=== PATIENT | female | born 1940 | race Caucasian/White ===

== ENCOUNTER 2020-09-14 09:39 | Inpatient (IN) | payer MEDICARE ==
[~2020-09-14] VITALS: Ht 190.5 cm; Wt 77.1 kg
--- NOTE | 2020-09-14 09:55 | NUR ---
PT DOES NOT REMEMBER HER HOME MEDICATION.
--- NOTE | 2020-09-14 10:00 | NUR ---
Pt BIB [facility], reports pt is covid +, pt had low SPO2 in 80's at home and has diarrhea; Pt laced on O2 via NC. Pt c/o diarrhea for 5 days, severe today, anorexia x 2 days, cough and low SPO2. Pt denies CP, SOB, dizziness, n/v, no other complaints, no distress noted.
[2020-09-14] MEDS ORDERED: ALBUTEROL SULFATE 8 GM HFA.AER.AD IH STA (10:11)
[2020-09-14] MEDS ORDERED: CEFTRIAXONE 1 G in IV DEXTROSE 5% 50 ML IV ONE (10:15)
[2020-09-14] MEDS ORDERED: AZITHROMYCIN IV 500 MG in IV DEXTROSE 5% 250 ML IV ONE (10:15)
[2020-09-14] MEDS ORDERED: DEXAMETHASONE SOD PHOSPHATE 4 MG INJ IV ONE (10:15)
[2020-09-14 10:46] LABS: BASOPHILS # (AUTO) 0.2 K/uL (0.0-8.0); BASOPHILS % (AUTO) 3.9 % (0.0-2.0); EOSINOPHILS % (AUTO) 0.3 % (0.0-7.0); HEMATOCRIT 39.6 % (31.2-41.9); HEMOGLOBIN 13.2 g/dL (10.9-14.3); LYMPHOCYTES # (AUTO) 0.4 K/uL (20.0-40.0); LYMPHOCYTES % (AUTO) 6.8 % (20.5-51.5); MEAN CORPUSCULAR HEMOGLOBIN 31.1 uug (24.7-32.8); MEAN CORPUSCULAR HGB CONC 33 g/dL (32.3-35.6); MEAN CORPUSCULAR VOLUME 93.6 fL (75.5-95.3); MONOCYTES # (AUTO) 0.5 K/uL (2.0-10.0); MONOCYTES % (AUTO) 9.7 % (0.0-11.0); NEUTROPHILS # (AUTO) 4.4 K/uL (1.8-8.9); NEUTROPHILS % (AUTO) 79.3 % (38.5-71.5); PLATELET COUNT (AUTO) 216 K/uL (179-408); RED BLOOD CELL COUNT(AUTO) 4.23 MIL/uL (3.63-4.92); WHITE BLOOD COUNT (AUTO) 5.6 K/uL (3.8-11.8)
[2020-09-14 11:11] LABS: THYROID STIMULATING HORMONE 0.573 mIU/mL (0.358-3.740)
[2020-09-14] MEDS ORDERED: AZITHROMYCIN 500MG/ D5W 250ML IVPB **ER PYXIS ONLY IV ONE (11:19)
[2020-09-14] MEDS ORDERED: DEXAMETHASONE SOD PHOSPHATE 4 MG INJ ONE (11:19)
[2020-09-14] MEDS ORDERED: CEFTRIAXONE /D5W 50ML IVPB **ER PYXIS IV ONE (11:20)
[2020-09-14 11:37] LABS: POTASSIUM 3.7 mmol/L (3.5-5.1)
[2020-09-14 11:43] LABS: BILIRUBIN,DIRECT 0.2 mg/dL (0.0-0.2); BILIRUBIN,TOTAL 0.8 mg/dL (0.2-1.0); MAGNESIUM 2.2 mg/dL (1.8-2.4); TOTAL PROTEIN, SERUM 7.1 g/dL (6.4-8.2)
[2020-09-14] MEDS ORDERED: ENOXAPARIN SODIUM 80 MG/0.8 ML DISP.SYRIN SQ ONE ×2 (12:00→13:13)
[2020-09-14] MEDS ORDERED: IV NORMAL SALINE 1000 ML BAG IV ONE (13:00)
--- NOTE | 2020-09-14 14:02 | NUR ---
Pt given lunch tray. No complaints, no distress noted.
[2020-09-14] MEDS ORDERED: ACETAMINOPHEN 650 MG SUPP.RECT RC PRN (15:30)
[2020-09-14] MEDS ORDERED: ALBUTEROL SULFATE 8 GM HFA.AER.AD IH PRN (15:30)
[2020-09-14] MEDS ORDERED: ONDANSETRON 4 MG/2 ML VIAL IV PRN (15:30)
[2020-09-14] MEDS ORDERED: ACETAMINOPHEN 325 MG TABLET PO PRN (15:30)
--- NOTE | 2020-09-14 17:00 | NUR ---
Pt resting in bed, no further complaints, no distress noted. Gave pt cracker and water.
--- NOTE | 2020-09-14 20:00 | NUR ---
ADMITTED,FEMALE ALERT X3, ORIENTED TO FLOOR , COVID ISOLATION O2 AT 2 LITERS. NO SOB SLEPT AT LONG INTERVALS NO COUGH NOTED.
[2020-09-14] MEDS ORDERED: ENOXAPARIN SODIUM 100 MG/ML DISP.SYRIN SQ ONE (22:57)
[2020-09-14] MEDS: ENOXAPARIN SODIUM 80 MG/0.8 ML DISP.SYRIN SQ SCH (23:02)
--- NOTE | 2020-09-14 23:50 | NUR ---
Patient is resting in bed, states that she has been coughing more, currently she is reading 94% SpO2 on the monitor, heart rate is normal, and BP is within normal limits.
--- NOTE | 2020-09-15 04:30 | NUR ---
Patient is resting in bed, requested and given a warm blanket, no distress noted at this time.
[2020-09-15] MEDS ORDERED: ONDANSETRON 4 MG/2 ML VIAL ONE (06:34)
--- NOTE | 2020-09-15 07:24 | NUR ---
(Pandemic disaster charting with no appropriate staffing ratio observed in ER) : Puppet Engineer assumes care, patient is seen lying on gurney with high ingram's position while using her personal cellphone, respiration: nonlabored, denies nausea@this time, afebrile, calm, pending available COVID telemetry bed & nurse@the moment
[2020-09-15] MEDS ORDERED: DEXAMETHASONE SOD PHOSPHATE 10 MG INJ ONE (08:31)
[2020-09-15] MEDS ORDERED: ENOXAPARIN SODIUM 80 MG/0.8 ML DISP.SYRIN SQ ONE (08:31)
[2020-09-15] MEDS: DEXAMETHASONE SOD PHOSPHATE 4 MG INJ IV SCH (09:06)
[2020-09-15] MEDS: ENOXAPARIN SODIUM 80 MG/0.8 ML DISP.SYRIN SQ SCH ×2 (09:07→21:07)
[2020-09-15 10:26] LABS: BASOPHILS % (AUTO) 0.1 % (0.0-2.0); HEMATOCRIT 39.9 % (31.2-41.9); HEMOGLOBIN 13.1 g/dL (10.9-14.3); LYMPHOCYTES # (AUTO) 0.5 K/uL (20.0-40.0); LYMPHOCYTES % (AUTO) 5.9 % (20.5-51.5); MEAN CORPUSCULAR HEMOGLOBIN 30.8 uug (24.7-32.8); MEAN CORPUSCULAR HGB CONC 33 g/dL (32.3-35.6); MEAN CORPUSCULAR VOLUME 93.4 fL (75.5-95.3); MONOCYTES # (AUTO) 0.3 K/uL (2.0-10.0); MONOCYTES % (AUTO) 3.5 % (0.0-11.0); NEUTROPHILS # (AUTO) 8.1 K/uL (1.8-8.9); NEUTROPHILS % (AUTO) 90.5 % (38.5-71.5); PLATELET COUNT (AUTO) 257 K/uL (179-408); RED BLOOD CELL COUNT(AUTO) 4.27 MIL/uL (3.63-4.92); WHITE BLOOD COUNT (AUTO) 8.9 K/uL (3.8-11.8)
[2020-09-15 10:29] LABS: BILIRUBIN,TOTAL 0.6 mg/dL (0.2-1.0); CREATININE 0.8 mg/dL (0.6-1.3); POTASSIUM 3.4 mmol/L (3.5-5.1); TOTAL PROTEIN, SERUM 7.1 g/dL (6.4-8.2)
[2020-09-15] MEDS: CEFTRIAXONE 1 G in IV DEXTROSE 5% 50 ML IV SCH (11:30)
[2020-09-15] MEDS ORDERED: CEFTRIAXONE /D5W 50ML IVPB **ER PYXIS IV ONE (12:18)
[2020-09-15] MEDS ORDERED: AZITHROMYCIN 500 MG VIAL IV ONE (12:18)
[2020-09-15] MEDS: AZITHROMYCIN IV 500 MG in IV DEXTROSE 5% 250 ML IV SCH (12:40)
--- NOTE | 2020-09-15 13:20 | NUR ---
Patient moved from [facility] to hospital bed for comfort. Safety & isolation measures maintained.
[2020-09-15] MEDS ORDERED: POTASSIUM CHLORIDE 20 MEQ TAB.PRT.SR PO ONE (16:00)
[2020-09-15] MEDS ORDERED: GUAIFENESIN/DEXTROMETHORPHAN 5 ML UDC PO PRN (16:15)
[2020-09-15] MEDS ORDERED: FEXOFENADINE HCL 180 MG TABLET PO SCH (16:30)
[2020-09-15] MEDS ORDERED: POTASSIUM CHLORIDE 20 MEQ TAB.PRT.SR ONE (16:31)
[2020-09-15] MEDS: FEXOFENADINE HCL 180 MG TABLET PO SCH (17:23)
--- NOTE | 2020-09-15 17:41 | NUR ---
Patient is eating dinner with good appetite, still waiting for available COVID-telemetry nurse & bed@this time.
--- NOTE | 2020-09-15 19:00 | NUR ---
Patient is resting comfortably in bed while watching bedside TV.
[2020-09-15] MEDS ORDERED: REMDESIVIR (CHARGED) 200 MG in IV NORMAL SALINE 210 ML IV ONE (20:00)
--- NOTE | 2020-09-15 20:00 | NUR ---
Assumed care for patient at this time from Elenita OSWALD. Patient not in acute distress. O2 at 2LPM NC, effective for patient with saturation at 92-94%. Repositioned in bed. Informed consent for plasma transfusion obtained. VS taken, stable.
[2020-09-15] MEDS ORDERED: ENOXAPARIN SODIUM 100 MG/ML DISP.SYRIN SQ ONE (20:54)
[2020-09-15 23:52] VITALS: BP 126/58
[2020-09-16] MEDS ORDERED: LEVO175T2 PO (00:35)
[2020-09-16] MEDS ORDERED: SIMV-49 PO (00:35)
[2020-09-16] MEDS ORDERED: LISI-603 PO (00:35)
[2020-09-16] MEDS ORDERED: OXYMETAZOLINE NASAL 0.05% 15 ML SPRAY NS PRN (01:45)
[2020-09-16 04:31] VITALS: BP 135/70
[2020-09-16 08:22] LABS: BASOPHILS % (AUTO) 0.1 % (0.0-2.0); HEMATOCRIT 38.5 % (31.2-41.9); LYMPHOCYTES # (AUTO) 0.7 K/uL (20.0-40.0); LYMPHOCYTES % (AUTO) 4.5 % (20.5-51.5); MEAN CORPUSCULAR HEMOGLOBIN 31.1 uug (24.7-32.8); MEAN CORPUSCULAR HGB CONC 34 g/dL (32.3-35.6); MEAN CORPUSCULAR VOLUME 92.4 fL (75.5-95.3); MONOCYTES % (AUTO) 6.3 % (0.0-11.0); NEUTROPHILS # (AUTO) 14.2 K/uL (1.8-8.9); NEUTROPHILS % (AUTO) 89.1 % (38.5-71.5); PLATELET COUNT (AUTO) 311 K/uL (179-408); RED BLOOD CELL COUNT(AUTO) 4.17 MIL/uL (3.63-4.92); WHITE BLOOD COUNT (AUTO) 15.9 K/uL (3.8-11.8)
[2020-09-16] MEDS: FLUTICASONE PROP NASAL SPRAY 16 GM BOTTLE NS SCH (09:00)
[2020-09-16 09:09] LABS: BILIRUBIN,DIRECT 0.1 mg/dL (0.0-0.2); BILIRUBIN,TOTAL 0.5 mg/dL (0.2-1.0); CREATININE 0.9 mg/dL (0.6-1.3); POTASSIUM 3.9 mmol/L (3.5-5.1); TOTAL PROTEIN, SERUM 6.9 g/dL (6.4-8.2)
[2020-09-16] MEDS: FEXOFENADINE HCL 180 MG TABLET PO SCH (10:55)
[2020-09-16] MEDS: DEXAMETHASONE SOD PHOSPHATE 4 MG INJ IV SCH (10:55)
[2020-09-16] MEDS: ENOXAPARIN SODIUM 80 MG/0.8 ML DISP.SYRIN SQ SCH ×2 (11:16→22:23)
[2020-09-16 12:00] VITALS: BP 144/76
[2020-09-16] MEDS: CEFTRIAXONE 1 G in IV DEXTROSE 5% 50 ML IV SCH (15:20)
[2020-09-16] MEDS: AZITHROMYCIN IV 500 MG in IV DEXTROSE 5% 250 ML IV SCH (16:57)
[2020-09-16 17:16] VITALS: BP 123/74
--- NOTE | 2020-09-16 19:30 | NUR ---
Received patient in bed, awake and alert. Kymberly pain or SOB. Pt is on 2L NC tolerating well, sating at 93%. No distress noted. Call light is within reach. Bed is locked and in lowest position. No other issues or concerns at this time.
[2020-09-16] MEDS: REMDESIVIR (CHARGED) 100 MG in IV NORMAL SALINE 100 ML IV SCH (20:00)
[2020-09-16 21:09] VITALS: BP 132/77
[2020-09-17 01:30] VITALS: BP_SYST 130; BP_DIAS 60; BP_DIAS 70
[2020-09-17 05:52] VITALS: BP 120/61
[2020-09-17] MEDS: LEVOTHYROXINE SODIUM 175 MCG TABLET PO SCH (06:00)
[2020-09-17 07:49] LABS: BASOPHILS % (AUTO) 0.1 % (0.0-2.0); HEMATOCRIT 35.4 % (31.2-41.9); HEMOGLOBIN 12.1 g/dL (10.9-14.3); LYMPHOCYTES # (AUTO) 0.7 K/uL (20.0-40.0); LYMPHOCYTES % (AUTO) 6.1 % (20.5-51.5); MEAN CORPUSCULAR HEMOGLOBIN 31.8 uug (24.7-32.8); MEAN CORPUSCULAR HGB CONC 34 g/dL (32.3-35.6); MEAN CORPUSCULAR VOLUME 93.3 fL (75.5-95.3); MONOCYTES # (AUTO) 0.8 K/uL (2.0-10.0); MONOCYTES % (AUTO) 7.2 % (0.0-11.0); NEUTROPHILS # (AUTO) 9.5 K/uL (1.8-8.9); NEUTROPHILS % (AUTO) 86.6 % (38.5-71.5); PLATELET COUNT (AUTO) 303 K/uL (179-408); RED BLOOD CELL COUNT(AUTO) 3.79 MIL/uL (3.63-4.92); WHITE BLOOD COUNT (AUTO) 10.9 K/uL (3.8-11.8)
[2020-09-17 08:05] LABS: ALANINE AMINOTRANSFERASE 43 U/L (14-59); ALKALINE PHOSPHATASE 57 U/L (50-136); ASPARTATE AMINOTRANSFERASE 34 U/L (15-37); BILIRUBIN,DIRECT < 0.1 mg/dL (0.0-0.2); BILIRUBIN,TOTAL 0.4 mg/dL (0.2-1.0); CARBON DIOXIDE 25 mmol/L (21-32); CHLORIDE 105 mmol/L (98-107); GLUCOSE 115 mg/dL (74-106); POTASSIUM 3.8 mmol/L (3.5-5.1); UREA NITROGEN, BLOOD 21 mg/dL (7-18)
[2020-09-17] MEDS: ENOXAPARIN SODIUM 80 MG/0.8 ML DISP.SYRIN SQ SCH ×2 (09:00→20:59)
[2020-09-17] MEDS: DEXAMETHASONE SOD PHOSPHATE 4 MG INJ IV SCH (09:08)
[2020-09-17] MEDS: FLUTICASONE PROP NASAL SPRAY 16 GM BOTTLE NS SCH ×2 (09:09→12:47)
[2020-09-17] MEDS: FEXOFENADINE HCL 180 MG TABLET PO SCH (09:13)
[2020-09-17 11:43] VITALS: BP 139/66
[2020-09-17] MEDS: CEFTRIAXONE 1 G in IV DEXTROSE 5% 50 ML IV SCH (12:57)
[2020-09-17] MEDS: AZITHROMYCIN IV 500 MG in IV DEXTROSE 5% 250 ML IV SCH (14:23)
[2020-09-17 15:45] VITALS: BP 140/70
[2020-09-17 18:15] LABS: *OCCULT BLOOD STOOL POSITIVE (NEGATIVE)
--- NOTE | 2020-09-17 18:43 | NUR ---
patient is alert and oriented x4. resting quietly and comfortably in her assigned bed. patient is receiving 2L oxygen via NC, tolerating well. patient signed consent for convalescent plasma, lab notified and per lab plasma was ordered. patient having blood in stool and urine, RANGE TECHNICIAN notified. Stool sample sent to lab, waiting for results. patient denies complaints of pain or discomfort. call light and valuables placed within reach.
[2020-09-17] MEDS: REMDESIVIR (CHARGED) 100 MG in IV NORMAL SALINE 100 ML IV SCH (19:56)
--- NOTE | 2020-09-17 20:00 | NUR ---
RECEIVED PATIENT AWAKE IN BED. A/O X4. C/O PAIN IN LEFT HAND WHERE IV SITE NOTED. REDNESS AND SWELLING NOTED. IV INFILTRATED. NEW IV STARTED TO LEFT FA #20 GAUGE. ON O2 2L NC. NO RESP. DISTRESS NOTED. NON-PRODUCTIVE COUGH NOTED. VS WNL. ON TELE SR. BED ALARM ON. ON ISOLATION, PATIENT IS COVID POSITIVE. WILL CONTINUE TO MONITOR AND ASSESS. ALL NEEDS ATTENDED.
[2020-09-17 20:30] VITALS: BP 138/63
[2020-09-18 00:12] VITALS: BP 132/60
[2020-09-18 04:27] VITALS: BP 139/71
[2020-09-18] MEDS: LEVOTHYROXINE SODIUM 175 MCG TABLET PO SCH (06:00)
[2020-09-18] MEDS: PANTOPRAZOLE SODIUM 40 MG TABLET.DR PO SCH (06:21)
[2020-09-18 06:31] LABS: BASOPHILS % (AUTO) 0.1 % (0.0-2.0); HEMATOCRIT 39.4 % (31.2-41.9); HEMOGLOBIN 13.1 g/dL (10.9-14.3); LYMPHOCYTES # (AUTO) 0.9 K/uL (20.0-40.0); LYMPHOCYTES % (AUTO) 6.9 % (20.5-51.5); MEAN CORPUSCULAR HGB CONC 33 g/dL (32.3-35.6); MEAN CORPUSCULAR VOLUME 93.4 fL (75.5-95.3); MONOCYTES % (AUTO) 7.2 % (0.0-11.0); NEUTROPHILS # (AUTO) 11.6 K/uL (1.8-8.9); NEUTROPHILS % (AUTO) 85.8 % (38.5-71.5); PLATELET COUNT (AUTO) 346 K/uL (179-408); RED BLOOD CELL COUNT(AUTO) 4.22 MIL/uL (3.63-4.92); WHITE BLOOD COUNT (AUTO) 13.5 K/uL (3.8-11.8)
[2020-09-18 07:09] LABS: BILIRUBIN,DIRECT 0.2 mg/dL (0.0-0.2); BILIRUBIN,TOTAL 0.6 mg/dL (0.2-1.0); CREATININE 1.1 mg/dL (0.6-1.3); TOTAL PROTEIN, SERUM 6.6 g/dL (6.4-8.2)
[2020-09-18] MEDS ORDERED: PRAMOXIN/MINERAL OIL/ZNIC OINT 28.3 GM TUBE RC SCH (09:00)
[2020-09-18] MEDS: FLUTICASONE PROP NASAL SPRAY 16 GM BOTTLE NS SCH (09:15)
[2020-09-18] MEDS: DEXAMETHASONE SOD PHOSPHATE 4 MG INJ IV SCH (09:15)
[2020-09-18] MEDS: ENOXAPARIN SODIUM 80 MG/0.8 ML DISP.SYRIN SQ SCH ×2 (09:17→09:49)
[2020-09-18] MEDS: FEXOFENADINE HCL 180 MG TABLET PO SCH (09:20)
[2020-09-18] MEDS: PHENYLEPHRINE/SHARK LIVER/CCB 1 EACH SUPP.RECT RC SCH (09:20)
--- NOTE | 2020-09-18 11:28 | NUR ---
SEEN BY SKYLER THORNTON SEE NOTES
[2020-09-18 11:57] VITALS: BP 148/71
[2020-09-18] MEDS: AZITHROMYCIN IV 500 MG in IV DEXTROSE 5% 250 ML IV SCH (12:38)
[2020-09-18 16:33] VITALS: BP 140/75
[2020-09-18] MEDS: ENSURE WITH FIBER 237 ML LIQUID (CHOCOLATE) PO SCH (17:02)
--- NOTE | 2020-09-18 18:13 | NUR ---
CONTINUE REMDESIVIR ORDERED, AWAITING MIDLINE FOR INSERTION DUE TO POOR VEIN. PATIENT REMAINS STABLE FAR RESPIRATORY STATUS.
[2020-09-18 20:00] VITALS: BP 141/75
--- NOTE | 2020-09-18 20:00 | NUR ---
AWAKE,ALERT VERY ANXIOUS REGADING IV RENDESIVIR.MIDLINE NURSE DIDNT COME YET.VITAL SIGNS STABLE. NO COMPLAINT MADE RESTING COMFOTABLY
[2020-09-18] MEDS ORDERED: ENOXAPARIN SODIUM 40 MG/0.4 ML DISP.SYRIN SQ SCH (21:00)
[2020-09-18] MEDS: REMDESIVIR (CHARGED) 100 MG in IV NORMAL SALINE 100 ML IV SCH (23:58)
[2020-09-19] VITALS (10 sets, daily range): BP systolic 125–159; BP diastolic 70–87
--- NOTE | 2020-09-19 | NUR ---
MIDLINE NURSE CAME [place]IV[place] [id number] SAYDA CALLED CATAPRES 0.1 MG GIVEN.
[2020-09-19] MEDS ORDERED: CLONIDINE HCL 0.1 MG TABLET PO PRN (00:45)
--- NOTE | 2020-09-19 02:35 | NUR ---
PLASMA TRANSFUSION STARTED,PRODUCT UNABLE TO SCAN ,Tame NOTIFIED, VERBALIZED JUST TO USE PAPER. VITAL SIGNS STABLE.
--- NOTE | 2020-09-19 05:40 | NUR ---
VITAL SIGNS STAble 97.8, 87 pulse and blood [id number]
[2020-09-19] MEDS: LEVOTHYROXINE SODIUM 175 MCG TABLET PO SCH (06:04)
[2020-09-19] MEDS: PANTOPRAZOLE SODIUM 40 MG TABLET.DR PO SCH (06:05)
[2020-09-19 06:54] LABS: BASOPHILS % (AUTO) 0.1 % (0.0-2.0); EOSINOPHILS % (AUTO) 0.1 % (0.0-7.0); HEMATOCRIT 36.1 % (31.2-41.9); HEMOGLOBIN 12.2 g/dL (10.9-14.3); LYMPHOCYTES # (AUTO) 0.9 K/uL (20.0-40.0); LYMPHOCYTES % (AUTO) 7.5 % (20.5-51.5); MEAN CORPUSCULAR HEMOGLOBIN 31.6 uug (24.7-32.8); MEAN CORPUSCULAR HGB CONC 34 g/dL (32.3-35.6); MEAN CORPUSCULAR VOLUME 93.3 fL (75.5-95.3); MONOCYTES # (AUTO) 0.8 K/uL (2.0-10.0); MONOCYTES % (AUTO) 6.4 % (0.0-11.0); NEUTROPHILS # (AUTO) 10.4 K/uL (1.8-8.9); NEUTROPHILS % (AUTO) 85.9 % (38.5-71.5); PLATELET COUNT (AUTO) 314 K/uL (179-408); RED BLOOD CELL COUNT(AUTO) 3.86 MIL/uL (3.63-4.92); WHITE BLOOD COUNT (AUTO) 12.1 K/uL (3.8-11.8)
[2020-09-19 07:31] LABS: BILIRUBIN,DIRECT 0.2 mg/dL (0.0-0.2); BILIRUBIN,TOTAL 0.6 mg/dL (0.2-1.0); CREATININE 0.8 mg/dL (0.6-1.3); TOTAL PROTEIN, SERUM 6.2 g/dL (6.4-8.2)
[2020-09-19] MEDS: FEXOFENADINE HCL 180 MG TABLET PO SCH (08:34)
[2020-09-19] MEDS: PHENYLEPHRINE/SHARK LIVER/CCB 1 EACH SUPP.RECT RC SCH (08:34)
[2020-09-19] MEDS: ENSURE WITH FIBER 237 ML LIQUID (CHOCOLATE) PO SCH ×2 (08:35→16:50)
[2020-09-19] MEDS: DEXAMETHASONE SOD PHOSPHATE 4 MG INJ IV SCH (08:35)
[2020-09-19] MEDS: FLUTICASONE PROP NASAL SPRAY 16 GM BOTTLE NS SCH (08:36)
[2020-09-19] MEDS: ENOXAPARIN SODIUM 40 MG/0.4 ML DISP.SYRIN SQ SCH (08:37)
[2020-09-19] MEDS: REMDESIVIR (CHARGED) 100 MG in IV NORMAL SALINE 100 ML IV SCH (20:57)
--- NOTE | 2020-09-19 22:00 | NUR ---
Received patient in bed AxOX4, denies any pain at the moment. No acute distress noted. No sob Noted. On 3L NC saturating @95%. All due medication administered. KANDACE midline intact. Infused bag 4 of Remdesivir no adverse reaction noted. Needs attended to. Reinforced pt to use spirometer. Call light is within reach. Bed is locked and in lowest position. Safety measures maintained. Will continue to monitor through the night.
[2020-09-20 00:18] VITALS: BP 156/77
[2020-09-20 04:00] VITALS: BP 128/71
[2020-09-20] MEDS: LEVOTHYROXINE SODIUM 175 MCG TABLET PO SCH (06:07)
[2020-09-20] MEDS: PANTOPRAZOLE SODIUM 40 MG TABLET.DR PO SCH (06:07)
[2020-09-20] MEDS: DEXAMETHASONE SOD PHOSPHATE 4 MG INJ IV SCH (08:32)
[2020-09-20] MEDS: FEXOFENADINE HCL 180 MG TABLET PO SCH (08:34)
[2020-09-20] MEDS: ENSURE WITH FIBER 237 ML LIQUID (CHOCOLATE) PO SCH ×2 (08:34→16:42)
[2020-09-20] MEDS: FLUTICASONE PROP NASAL SPRAY 16 GM BOTTLE NS SCH (08:34)
[2020-09-20] MEDS: ENOXAPARIN SODIUM 40 MG/0.4 ML DISP.SYRIN SQ SCH (08:37)
[2020-09-20] MEDS: PHENYLEPHRINE/SHARK LIVER/CCB 1 EACH SUPP.RECT RC SCH (08:51)
[2020-09-20 11:59] VITALS: BP 119/94
[2020-09-20 16:00] VITALS: BP 140/71
== END 2020-09-20 18:10 | DRG 177 ==
LOC: ER 09:39 → TRANSITION 18:26 → TELE3 09-15 21:57
PROVIDERS: ADMIT Nurse Practitioner Acute Care; ATTEND Nurse Practitioner Acute Care
PROC: XW033E5 Introduction of Remdesivir Anti-infective into Peripheral Vein, Percutaneous Approach, New Technology Group 5 (ICD-10-PCS; principal; 2020-09-15)
PROC: XW13325 Transfusion of Convalescent Plasma (Nonautologous) into Peripheral Vein, Percutaneous Approach, New Technology Group 5 (ICD-10-PCS; 2020-09-15)
PROC: 05H633Z Insertion of Infusion Device into Left Subclavian Vein, Percutaneous Approach (ICD-10-PCS; 2020-09-19)
PROC: B547ZZA Ultrasonography of Left Subclavian Vein, Guidance (ICD-10-PCS; 2020-09-19)
DX: U07.1 COVID-19 (principal); J12.82 Pneumonia due to coronavirus disease 2019; J96.01 Acute respiratory failure with hypoxia; E78.5 Hyperlipidemia, unspecified; I10 Essential (primary) hypertension; R53.1 Weakness; T38.0X5A Adverse effect of glucocorticoids and synthetic analogues, initial encounter; Y92.89 Other specified places as the place of occurrence of the external cause; D72.828 Other elevated white blood cell count; N93.9 Abnormal uterine and vaginal bleeding, unspecified; Z87.891 Personal history of nicotine dependence
CPT/HCPCS: 36415; 70030-TC; 71045; 83605; 83615; 83690; 83735; 84100; 84443; 85025; 85610; 85730; 86140; 86850; 86900; 86901; 87040; 93005; A4663; G0378; J0456; J0696; J1100; J1650; J2405; J3490; J3535; J7030; J7050; J7060; P9016-BL; P9017-BL